=== PATIENT | female | born 1995 | race Caucasian/White ===

== ENCOUNTER 2021-09-03 08:36 | Outpatient (REF) | payer OTHER, SELFPAY ==
[2021-09-03 09:03] LABS: Binax Internal Control QC Valid; Binax Now Covid-19 Ag Negative (Negative)
== END 2021-09-03 08:37 | disposition home or self-care (01) ==
LOC: HO.HMGCLDS 08:36
PROVIDERS: Visit Provider Internal Medicine
DX: Z13.89 Encounter for screening for other disorder (principal)

== ENCOUNTER 2022-01-19 22:10 | Emergency (ER) | payer OTHER, SELFPAY ==
--- NOTE | ~2022-01-19 | CT_ITS ---
EXAMINATION: CT ABDOMEN AND PELVIS WITHOUT CONTRAST CLINICAL INFORMATION: Right upper quadrant pain COMPARISON: None TECHNIQUE: Multidetector volumetric imaging was performed from the superior aspect of the liver through the pubic symphysis. Sagittal and coronal reformatted images were obtained on the technologist's workstation. This CT examination was performed using dose optimization techniques as appropriate, variously including the following: *Automated exposure control *Adjustment of mA and/or kV according to patient size (this includes techniques or standardized protocols for targeted exams where dose is matched to indication/reason for exam; i.e. extremities or head) *Use of iterative reconstruction technique DLP: 547 mGy-cm FINDINGS: LUNG BASES: Unremarkable. ABDOMINAL AND PELVIC WALL: Unremarkable. LIVER AND BILIARY TREE: Unremarkable. GALLBLADDER: Unremarkable. PANCREAS: Unremarkable. SPLEEN: Unremarkable. ADRENAL GLANDS: Unremarkable. KIDNEYS AND URETERS: Unremarkable. GASTROINTESTINAL TRACT: Large and small bowel is unremarkable. Normal appendix. VASCULAR: Unremarkable. LYMPH NODES/PERITONEUM: No lymphadenopathy. FREE FLUID: None. BLADDER: Unremarkable. PELVIC VISCERA: Unremarkable. OSSEOUS STRUCTURES: Unremarkable. CT/CT abdomen pelvis wo con IMPRESSION: No findings to explain symptoms of right upper quadrant pain.
[2022-01-19 22:41] VITALS: BP 153/100; PULSE 114; RESP 20; TEMP 36.6; O2SAT 100; BMI 26.6
[2022-01-19 22:54] LABS: MANUAL DIFF FLAG NO
[2022-01-19 22:57] LABS: Basophils Absolute Auto 0.1 X10*3/uL (0.0-0.2); Basophils Percent Auto 0.9 % (0-2); Eosinophils Absolute Auto 0.7 X10*3/uL (0.0-0.4); Eosinophils Percent Auto 10.1 % (0-4); Hematocrit 42.9 % (37.0-47.0); Hemoglobin 14.4 g/dl (12.0-16.0); Imm Gran Abs Auto 0.01 X10*3/uL (0.00-0.03); Imm Gran Pct Auto 0.1 % (0.0-0.4); Lymphocytes Absolute Auto 2.3 X10*3/uL (1.2-4.9); Lymphocytes Percent Auto 33.2 % (20-40); Mean Corpuscular HGB Conc 33.6 g/dl (31.0-35.0); Mean Corpuscular Hemoglobin 30.7 pg (27.0-33.0); Mean Corpuscular Volume 91.5 fL (80.0-98.0); Mean Platelet Volume 12.2 fL (9.4-12.3); Monocytes Absolute Auto 0.5 X10*3/uL (0.1-1.2); Monocytes Percent Auto 6.8 % (2-11); Neutrophils Absolute Auto 3.4 x10*3/uL (2.0-8.3); Neutrophils Percent Auto 48.9 % (45-73); Platelet Count 169 X10*3/uL (160-400); Red Blood Count 4.69 X10*6/uL (4.20-5.50); Red Cell Distribution Width 13.1 % (11.0-16.0)
[2022-01-19 23:15] LABS: Alanine Aminotransferase 14 U/L (0-31); Albumin Level 4.2 g/dL (3.5-5.0); Alkaline Phosphatase 53 U/L (39-117); Anion Gap 12 (12-20); Aspartate Amino Transferase 17 U/L (5-31); Bilirubin Total 0.5 mg/dL (0.0-1.0); Blood Urea Nitrogen 16 mg/dL (9-16); Calcium 9.4 mg/dL (8.4-10.2); Carbon Dioxide 24 mmol/L (22-29); Chloride 105 mmol/L (96-108); Creatinine Clr Calc Pharmacy 90.6; Estimated Glomerular Filt Rate > 60; Glucose Random 89 mg/dL (60-115); Sodium 137 mmol/L (135-145)
--- NOTE | 2022-01-19 23:23 | ED_ITS ---
HPI - Abdominal Pain General Chief Complaint: Abdominal Pain Stated Complaint: right sided abd pain Time Seen by Provider: 01/19/22 23:22 Source: patient Mode of arrival: ambulatory Limitations: no limitations History of Present Illness HPI narrative: 26-year-old female with no past medical history presenting to the emergency room with right upper quadrant abdominal pain. Patient states that this stabbing 10/10 intermittent pain has been going on for 5 days. Pain occurs after a meal, eating makes it worse and pain lasts for what feels like 4 hours. Patient denies any past surgeries to her gallbladder and appendix. No trauma to the area. Her right upper quadrant is tender and painful to touch she says at times. At this time however, she denies any pain. Patient denies vomiting, diarrhea, nausea, fevers, chills, urinary changes, headache, vision changes, chest pain, shortness of breath. Patient is not on control. MD elicited complaint: abdominal pain Pertinent past history: none Onset (ago): day(s) (5) Pain Consistency: intermittent Location: RUQ Severity: severe Pain scale (0-10): 10 Quality: stabbing Radiation: none Exacerbating factors: nothing Relieving factors: nothing Associated symptoms: denies other symptoms Related Data Previous Rx's Medication Instructions Recorded azithromycin 250 mg tablet See Rx Instructions PO .COMPLEX #6 09/03/21 tabs Allergies Allergy/AdvReac Type Severity Reaction Status Date / Time No Known Allergies Allergy Verified 01/19/22 22:44 Review of Systems Review of Systems Constitutional : No Weight loss, No Fever, No Chills, No Fatigue, No Malaise ENT/Mouth : No sore throat, No Rhinorrhea Eyes: No Eye Pain, No Swelling, No Redness Cardiovascular : No Chest Pain, No SOB, No Dyspnea on Exertion, No Orthopnea, No Edema, No Palpitations Respiratory : No Cough, No Sputum, No Wheezing Gastrointestinal : No Nausea, No Vomiting, No Diarrhea, No Constipation, + abdominal Pain, No Hematochezia, No Melena Genitourinary : No Dysuria, No Urinary Frequency, No Hematuria, Musculoskeletal : No joint pain, No Myalgias, No Joint Swelling Skin : No Skin Lesions, No rash Neuro : No Weakness, No Numbness, No Dizziness, No Headache All other systems reviewed and are negative Yes all other systems are reviewed and are negative [facility] Past Medical History Attestation statement: The following information was validated with the patient. Source: old records reviewed and nursing notes reviewed Social History Social History Advance Directives: No Physical Exam ED Vital Signs: Vital Signs - 24 hr 01/19/22 22:41 01/20/22 00:44 Temperature 98 F Pulse Rate 114 H 80 Respiratory Rate 20 12 Blood Pressure 153/100 H 123/72 Pulse Oximetry 100 100 Oxygen Delivery Method Room Air Room Air BMI result Body Mass Index 26.6 Vital signs with a slightly elevated pressure likely secondary to pain. Appearance: Alert.? Oriented X3.? No acute distress.? Head: Normocephalic, atraumatic, no step-offs or deformities Eyes: Pupils equal, round and reactive to light.? ENT: Pharynx normal.? Neck: Normal inspection.? Neck supple.? CVS: Normal heart rate and rhythm.? Pulses normal.? Respiratory: No respiratory distress.? Breath sounds normal.? Abdomen: Soft and + tenderness right upper quadrant.? Skin: Skin warm and dry.? Normal skin color.? Normal skin turgor.? Extremities: No lower extremity edema.? No calf ttp. 5/5 strength to bilateral upper and lower extremities Back: No midline tenderness, no C-spine tenderness, full range of motion, no CV A tenderness bilaterally Neuro: Oriented X 3.? No motor deficit.? No sensory deficit. CN 2-12 intact Course Course Course Narrative: This patient was evaluated during a time of global shortage of iodinated contrast media. Based on guidance from the [employer], best practices, and local institutional approaches an alternative path for evaluating and managing the patient may have been employed in order to provide optimal care during this shortage. The current situation has been discussed with the patient. Reevaluation(s) Reevaluation #1: CBC with no acute findings. Chemistry with no electrolyte abnormalities requiring intervention. Transaminases normal. Calcium, total bilirubin normal. UA clean, urine negative. COVID negative. CT of the abdomen and pelvis pending, sign-out given to tiago Barragan pending improvement and imaging. Time: 01:09 MDM - Abdominal Pain MDM Narrative Medical decision making narrative: 322 26-year-old female no medical history presents with intermittent right upper quadrant pain associated with eating times 5 days. Physical examination with discomfort to the right upper quadrant. Lungs clear. Regular rate and rhythm. Abdomen soft, nondistended. Negative CVA. Neuro exam nonfocal Plan at this time is labs, CT scan to rule out obstructive uropathy, cholecystitis, appendicitis. No technical support associate on at this time therefore a CT scan will be done instead of an ultrasound as this does not seem to be in her an emergent reason to call an technical support associate in Medical Records Attestation: I reviewed the patient's medical records. Lab Data Attestation: I reviewed the patient's lab results. Result diagrams: 01/19/22 22:49 01/19/22 22:49 Labs: Lab Results 01/19/22 01/19/22 01/20/22 Range/Units 22:49 22:49 00:44 WBC 7.0 (4.8-10.8) X10*3/uL RBC 4.69 (4.20-5.50) X10*6/uL Hgb 14.4 (12.0-16.0) g/dl Hct 42.9 (37.0-47.0) % MCV 91.5 (80.0-98.0) fL MCH 30.7 (27.0-33.0) pg MCHC 33.6 (31.0-35.0) g/dl RDW 13.1 (11.0-16.0) % Plt Count 169 (160-400) X10*3/uL MPV 12.2 (9.4-12.3) fL Immature Gran % (Auto) 0.1 (0.0-0.4) % Neut % (Auto) 48.9 (45-73) % Lymph % (Auto) 33.2 (20-40) % [place] % (Auto) 6.8 (2-11) % Eos % (Auto) 10.1 H (0-4) % Baso % (Auto) 0.9 (0-2) % Lymph # (Auto) 2.3 (1.2-4.9) X10*3/uL [place] # (Auto) 0.5 (0.1-1.2) X10*3/uL Eos # (Auto) 0.7 H (0.0-0.4) X10*3/uL Baso # (Auto) 0.1 (0.0-0.2) X10*3/uL Abs Immat Gran (auto) 0.01 (0.00-0.03) X10*3/uL Absolute Neuts (auto) 3.4 (2.0-8.3) x10*3/uL Absolute Nucleated RBC 0.000 (0.0-0.012) X10*3/uL Nucleated RBC % (auto) 0.0 (0.0-0.2) /100WBC Sodium 137 (135-145) mmol/L Potassium 4.0 (3.3-5.1) mmol/L Chloride 105 (96-108) mmol/L Carbon Dioxide 24 (22-29) mmol/L Anion Gap 12 (12-20) BUN 16 (9-16) mg/dL Creatinine 0.99 (0.5-1.4) mg/dL Estim Creat Clear Calc 90.6 Estimated GFR > 60 Random Glucose 89 (60-115) mg/dL Calcium 9.4 (8.4-10.2) mg/dL Total Bilirubin 0.5 (0.0-1.0) mg/dL AST 17 (5-31) U/L ALT 14 (0-31) U/L Alkaline Phosphatase 53 (39-117) U/L Total Protein 7.0 (6.5-8.0) g/dL Albumin 4.2 (3.5-5.0) g/dL Urine Color YELLOW Urine Appearance HAZY Urine pH 6.0 (5.0-8.0) Ur Specific [place] 1.020 (1.005-1.025) Urine Protein NEG (NEG-TRACE) MG/DL Urine Glucose (UA) NEG (NEG) MG/DL Urine Ketones NEG (NEG) MG/DL Urine Blood NEG (NEG) Urine Nitrite NEG (NEG) Ur Leukocyte Esterase NEG (NEG) Urine Test (NEGATIVE) 01/20/22 Range/Units 00:44 WBC (4.8-10.8) X10*3/uL RBC (4.20-5.50) X10*6/uL Hgb (12.0-16.0) g/dl Hct (37.0-47.0) % MCV (80.0-98.0) fL MCH (27.0-33.0) pg MCHC (31.0-35.0) g/dl RDW (11.0-16.0) % Plt Count (160-400) X10*3/uL MPV (9.4-12.3) fL Immature Gran % (Auto) (0.0-0.4) % Neut % (Auto) (45-73) % Lymph % (Auto) (20-40) % [place] % (Auto) (2-11) % Eos % (Auto) (0-4) % Baso % (Auto) (0-2) % Lymph # (Auto) (1.2-4.9) X10*3/uL [place] # (Auto) (0.1-1.2) X10*3/uL Eos # (Auto) (0.0-0.4) X10*3/uL Baso # (Auto) (0.0-0.2) X10*3/uL Abs Immat Gran (auto) (0.00-0.03) X10*3/uL Absolute Neuts (auto) (2.0-8.3) x10*3/uL Absolute Nucleated RBC (0.0-0.012) X10*3/uL Nucleated RBC % (auto) (0.0-0.2) /100WBC Sodium (135-145) mmol/L Potassium (3.3-5.1) mmol/L Chloride (96-108) mmol/L Carbon Dioxide (22-29) mmol/L Anion Gap (12-20) BUN (9-16) mg/dL Creatinine (0.5-1.4) mg/dL Estim Creat Clear Calc Estimated GFR Random Glucose (60-115) mg/dL Calcium (8.4-10.2) mg/dL Total Bilirubin (0.0-1.0) mg/dL AST (5-31) U/L ALT (0-31) U/L Alkaline Phosphatase (39-117) U/L Total Protein (6.5-8.0) g/dL Albumin (3.5-5.0) g/dL Urine Color Urine Appearance Urine pH (5.0-8.0) Ur Specific [place] (1.005-1.025) Urine Protein (NEG-TRACE) MG/DL Urine Glucose (UA) (NEG) MG/DL Urine Ketones (NEG) MG/DL Urine Blood (NEG) Urine Nitrite (NEG) Ur Leukocyte Esterase (NEG) Urine Test NEGATIVE (NEGATIVE) Critical Care Time Critical Care Time Critical Care Time: No Discharge Plan Discharge Clinical Impression: Intermittent right upper quadrant abdominal pain Patient Disposition: Home, Self-Care Instructions: Acute Abdominal Pain (ED) Additional Instructions: Take your medications as prescribed. If you were prescribed antibiotics today, it is important that you take your medication to their entirety, do not skip any doses, do not finish them early. Follow-up with your primary care provider this week. Follow-up with gastroenterology if needed. Return to the emergency department with new or worsening symptoms. Such as fevers, chills, chest pain, shortness of breath, nausea, vomiting, dizziness, headache, vision changes, lethargy In case of emergency call 911 Please be advised that you were seen during a time of global shortage of iodinated contrast media. This means an alternative approach to your diagnosis and treatment may have been employed in order to provide optimal care during the shortage. If you have any worsening symptoms, please go to the nearest [facility] department or call 911 immediately Prescriptions: No Action azithromycin 250 mg tablet See Rx Instructions PO .COMPLEX Qty: 6 0RF Rx Instructions: take 500 mg today (day 1), then 250 mg for 4 days (days 2-5) PO Referrals: Fernanda Raymond MD [Physician] - 1 week Physician,None [Primary Care Provider] - 2 days
[2022-01-20 00:44] VITALS: BP 123/72; PULSE 80; RESP 12; O2SAT 100
[2022-01-20 00:52] LABS: Appearance Urine HAZY; Color Urine YELLOW; Glucose Urine UA NEG (NEG); Leukocyte Esterase Urine NEG (NEG); Nitrite Urine NEG (NEG); Urine Blood NEG (NEG); Urine Ketones NEG (NEG); Urine Protein NEG (NEG-TRACE)
[2022-01-20 00:54] LABS: UPreg QC Valid YES; Urine Pregnancy NEGATIVE (NEGATIVE)
--- NOTE | 2022-01-20 02:45 | PC.NURSE ---
Discharged at this time. The pt verbalized an understanding of all DC orders and and she ambulated out of the ED independently and with steady gait.
== END 2022-01-20 02:46 | disposition home or self-care (01) ==
PROVIDERS: Internal Medicine; Emergency Provider Emergency Medicine
DX: R10.11 Right upper quadrant pain (principal)
CPT/HCPCS: 36415; 74176; 80053; 81003; 81025; 85025; 99283; 99284

== ENCOUNTER 2022-02-05 10:22 | Outpatient (REF) | payer OTHER, SELFPAY ==
[2022-02-05 12:11] LABS: Lipase 22 U/L (8-78)
[2022-02-05 12:14] LABS: Folate 13.9 ng/mL (> or = 4.0); Vitamin B12 319 pg/mL (200-900)
[2022-02-07 13:23] LABS: Transglutaminase Ab IgG <1.0 U/mL; Transglutaminase IgA <1.0 U/mL
[2022-02-07 14:42] LABS: Immunoglobulin A 163 mg/dL (47-310)
[2022-02-09 14:06] LABS: Vitamin D 25-OH, D2 <4 ng/mL; Vitamin D 25-OH, D3 37 ng/mL; Vitamin D 25-OH, Total 37 ng/mL (30-100)
== END 2022-02-05 10:23 | disposition home or self-care (01) ==
LOC: HO.LAB 10:22
PROVIDERS: PCP Internal Medicine; Visit Provider Nurse Practitioner Family
DX: R10.9 Unspecified abdominal pain (principal); R19.7 Diarrhea, unspecified; E55.9 Vitamin D deficiency, unspecified
CPT/HCPCS: 36415; 82306; 82607; 82746; 82784; 83690; 84443; 86364

== ENCOUNTER 2022-03-17 09:02 | Outpatient (REF) | payer OTHER, SELFPAY ==
--- NOTE | ~2022-03-17 | US_ITS ---
EXAMINATION: US ABDOMEN COMPLETE CLINICAL INFORMATION: Unspecified abdominal pain. COMPARISON: CT abdomen and pelvis without contrast dated 01/20/2022. TECHNIQUE: Real-time imaging of the abdominal viscera. FINDINGS: PANCREAS: Normal. ABDOMINAL AORTA: The proximal, mid, and distal segments are normal in caliber. INFERIOR VENA CAVA: Visualized portions are normal. LIVER: Normal. The liver is normal in size. The liver contour is normal. Parenchymal echogenicity is normal. No focal hepatic lesion. There is no intrahepatic biliary duct dilatation seen. GALLBLADDER: Normal. The gallbladder is physiologically distended without evidence of stones, sludge, polyps, wall thickening or pericholecystic fluid. COMMON BILE DUCT: Normal in caliber measuring 0.24 cm in diameter. RIGHT KIDNEY: Normal. No hydronephrosis. No renal calculi or focal parenchymal lesions. The kidney measures 11.3 cm in maximum dimension. LEFT KIDNEY: Normal. No hydronephrosis. No renal calculi or focal parenchymal lesions. The kidney measures 11.4 cm in maximum dimension. SPLEEN: Normal. The spleen measures 9.9 cm in maximum dimension. FREE FLUID: None. US/US abdomen complete IMPRESSION: Unremarkable exam.
== END 2022-03-17 09:03 | disposition home or self-care (01) ==
LOC: HO.HMGCX 09:02
PROVIDERS: PCP Internal Medicine; Visit Provider Nurse Practitioner Family
DX: R10.9 Unspecified abdominal pain (principal)
CPT/HCPCS: 76700

== ENCOUNTER 2024-04-21 13:53 | Outpatient (REF) | payer OTHER, SELFPAY ==
[2024-04-22 03:08] LABS: CT PCR NOT DETECTED (Not Detect.); NG PCR NOT DETECTED (Not Detect.)
[2024-04-22 04:02] LABS: Syphilis Screen Nonreactive (Nonreactive)
[2024-04-22 04:24] LABS: HBc Num1 0.12 S/CO (0.00-0.79); HIV AB/AG Nonreactive (Nonreactive); HIV Num 1 0.06 S/CO (0.00-0.99); Hepatitis B Core Antibody Nonreactive (Nonreactive); ~HepC Num1 0.15 S/CO (0.00-0.79); ~Hepatitis C Antibody Nonreactive (Nonreactive)
== END 2024-04-21 13:54 | disposition home or self-care (01) ==
LOC: HO.LAB 13:53
PROVIDERS: PCP Internal Medicine; Visit Provider Advanced Practice Midwife
DX: Z01.419 Encounter for gynecological examination (general) (routine) without abnormal findings (principal); Z20.2 Contact with and (suspected) exposure to infections with a predominantly sexual mode of transmission
CPT/HCPCS: 36415; 86704; 86780; 86803; 87389; 87491; 87591; 87625; 88175

== ENCOUNTER 2024-04-21 13:53 | Outpatient (AMB) | payer OTHER, SELFPAY ==
[2024-04-21 14:01] VITALS: BP 120/86; BMI 27.6
--- NOTE | 2024-04-21 14:01 | A.OFFVIS_ITS ---
Vital Signs 04/21/24 14:01 Height 5 ft 6 in Weight 171 lb BMI 27.6 BP 120/86 Intake Visit Reasons: [employer]ER annual exam/referral Intake Note: Last pap 2019 hx abn cells and colpo 1 normal since First Crusher: First Crusher Present (Carine) Allergies No Known Allergies Allergy (Verified 04/21/24 14:01) Is last menstrual period known: Yes Last menstrual period: 04/03/24 HPI Comments Details: She is a premenopausal woman presenting for new patient annual examination. Doing well with no concerns. She tries to eat healthy and stays active with exercise. Regular monthly menses. Currently is sexually active, uses withdrawal not did not control, if it accidental would be accepting. She denies vaginal itching and irritation. STI screening offered; she accepts. Denies family history of breast, ovarian or colon cancer. History of BATUR-renk-thsbk, colpo-SHERRI 1 2018, last Pap results unavailable at visit. [facility] Surgical History No pertinent past surgical history Family History Maternal Grandmother Heart attack Mother No problems noted. Father No problems noted. 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 Current occupational exposures/hazards: No Sexual orientation: Straight/Heterosexual Gender identity: Female Cognitive needs: No Hearing needs: No Vision needs: No Female Reproductive History Menstrual Duration of menses: 3-5 days Date of last menstrual period: 04/03/24 control method: none Total pregnancies: 0 Date of last pap smear: 10/13/18 (asc-h +hpv) History of abnormal pap smear: Yes (05/28 colpo sherri 1) Review of Systems Const All systems reviewed & are unremarkable except as noted in HPI and below Reports as per HPI Eyes Reports no additional complaints ENT Reports no additional complaints Card Reports no additional complaints Resp Reports no additional complaints GI Reports as per HPI and Reports no additional complaints Reports as per HPI Musc Reports no additional complaints Skin/Breast Reports as per HPI Neuro Reports no additional complaints Psych Reports no additional complaints Endo Reports no additional complaints Ric/Lymph Reports no additional complaints Aller/Immun Reports no additional complaints Physical Exam Vital Signs: Last Vital Signs BP 120/86 04/21/24 14:01 BMI result Body Mass Index 27.6 Const General: cooperative, healthy appearing, no acute distress, well developed and alert Orientation/consciousness: patient oriented x3 HEENT Head: Yes normal to inspection Eyes General: appearance normal, both eyes and all related structures Neck Neck: Yes normal visual inspection Thyroid: Thyroid normal Chest Chest palpation & inspection: normal inspection of the chest and other (no puckering, dimpling, peau de orange, retraction, discharge, masses) Breast/axilla inspection: normal inspection of the breasts Breast/axilla palpation: normal palpation of the breasts Resp Effort & Inspection: normal respiratory effort GI Inspection: Yes normal to inspection Palpation (GI): Soft to palpation Rectal Exam - Female: deferred General: Yes bladder normal to palpation External Female Exam: normal external appearance and normal appearance of the urethra Speculum Exam - Vagina: normal appearance of the vagina, normal palpation and normal vaginal discharge Speculum Exam - Cervix: normal appearance of the cervix, normal palpation and Other cervical findings present (Bled slightly with Pap) Bimanual exam- vagina & uterus: normal bimanual exam, normal palpation, uterine size normal, bladder normal to palpation, normal palpation and non-tender Bimanual Exam- Adnexa, other: no masses Skin General skin exam: no rashes or lesions noted Rashes: no rashes Neuro General: patient oriented x3 Cognition (Neuro): normal cognition Extrem General: Yes normal to inspection Psych Attitude: cooperative Thought process: Normal thought process present Assessment & Plan Assessment & Plan (1) Encounter for well woman exam with routine gynecological exam: Code(s): Z01.419 - Encounter for gynecological examination (general) (routine) without abnormal findings Category: Medical (2) History of abnormal cervical Pap smear: Code(s): Z87.42 - Personal history of other diseases of the female genital tract Plan Discussed: Current recommendations for pap smears per ASCCP guidelines. Pap smear obtained today. GC and chlamydia obtained. Plans STI screening blood work at the lab, additionally ordered. Breast awareness and periodic breast exams. Maintain a healthy lifestyle including a well balanced diet and routine exercise. control, declined. Advised to consider initiating a vitamin or multivitamin with folic acid for the prevention of neural tube defects. Efficacy of withdrawal is about 22% failure rate. Release for Pap records from [facility] [place]. Patient verbalizes understanding and agrees to the plan of care. She was given opportunity to ask questions and all questions were answered to the best of my ability. RTO in one year for annual health insurance agent examination. This note is constructed using voice recognition software. While every effort has been made to ensure accuracy, childcare director errors may have been included. Orders: Orders HIV Ab/Ag Today Z20.2 - Contact with and (suspected) exposure to infections with a predominantly sexual mode of transmission Syphilis Screen Today Z20.2 - Contact with and (suspected) exposure to infections with a predominantly sexual mode of transmission Hepatitis C Antibody Reflex Today Z20.2 - Contact with and (suspected) exposure to infections with a predominantly sexual mode of transmission Hepatitis B Core Antibody Today Z20.2 - Contact with and (suspected) exposure to infections with a predominantly sexual mode of transmission Coding Level of Care Code New Pt Prev Care 18-39yr([id number] Diagnoses Encounter for well woman exam with routine gynecological exam Z01.419 History of abnormal cervical Pap smear Z87.42
== END 2024-04-21 14:42 | disposition home or self-care (01) ==
PROVIDERS: PCP Internal Medicine; Visit Provider Advanced Practice Midwife
DX: Z01.419 Encounter for gynecological examination (general) (routine) without abnormal findings (principal); Z87.42 Personal history of other diseases of the female genital tract
CPT/HCPCS: 99385

== ENCOUNTER 2024-04-21 15:00 | Outpatient (REF) | payer OTHER, SELFPAY | END 2024-04-21 15:01 | disposition home or self-care (01) | LOC: HO.LNP 15:00 | PROVIDERS: Visit Provider Advanced Practice Midwife | DX: Z13.89 Encounter for screening for other disorder (principal) ==

== ENCOUNTER 2024-08-30 17:26 | Outpatient (AMB) | payer OTHER, SELFPAY ==
[2024-08-30 17:29] VITALS: BP 130/78; BMI 28.4
--- NOTE | 2024-08-30 17:29 | MHC.PC.OV ---
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 Automatic Required: No Accompanied by: Self / Same As Patient Allergies No Known Allergies Allergy (Verified 08/30/24 17:37) Medication List - Last Reconciled 08/30/24 by Tess Christianson MD No Known Home Meds Tobacco use date assessed: 08/30/24 Dental Screening Dental Screen Date: 08/30/24 Did you have a dental visit in the last 12 months?: Yes Did you have a dental problem in the last 6 months where you did not have access to dental care?: No Was dental information given to patient?: Patient has dentist HPI HPI Comments History of Present Illness Details The patient is a 28-year-old female presenting with a request for a routine physical examination and to update her vaccinations. She does not report any chronic health issues and denies any use of medications or known medical allergies. She has a history of a Pap smear from 2019 after an abnormal finding at that time, but reports a recent follow-up Pap smear in late 2023, with an upcoming appointment in 2024. There is no mention of significant past surgeries or medical events. She is not currently experiencing any symptoms of depression or anxiety. - Tdap vaccine overdue; discussed administration today. - Flu vaccine discussed as not received for the current influenza season; patient expressed interest in receiving it. - Pap smear in 2023 after prior abnormal finding in 2018. - No recent history of cigarette smoking and only occasional alcohol consumption noted. [facility] Surgical History No pertinent past surgical history Family History Maternal Grandmother Heart attack Mother No problems noted. Father No problems noted. 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 1. Little interest or pleasure in doing things: not at all 2. Feeling down, depressed, or hopeless: not at all 3. Trouble falling or staying asleep, or sleeping too much: not at all 4. Feeling tired or having little energy: not at all 5. Poor appetite or overeating: not at all 6. Feeling bad about yourself - or that you are a failure or have let yourself or your family down: not at all 7. Trouble concentrating on things, such as reading the newspaper or watching television: not at all 8. Moving or speaking so slowly that other people could have noticed. Or the opposite - being so fidgety or restless that you have been moving around a lot more than usual: not at all 9. Thoughts that you would be better off or of hurting yourself in some way: not at all Total score: 0 Depression Screening Interpretation: Negative Depression Screening Done: Yes 69692 - PHQ-9 Billing: Yes Source: Developed by Drs. Tank Phoenix, Loren Webster, Freddy Kearns and colleagues, with an educational maddison from [employer]. Thrive Questionnaire Date Thrive assessed: 08/30/24 I am a: Patient What is your living situation today?: I have a steady place to live Within the past 12 months, did the food you bought not last and you didn't have the money to get more?: Never true Within the past 12 months, did you worry whether your food would run out before you got money to buy more?: Never true Do you have trouble paying for medicines?: No Do you have trouble getting transportation to medical appointments?: No Do you have trouble paying your heating and electricity bill?: No Do you have trouble taking care of your child, family member or friend?: No Do you have trouble with day-to-day activities such as bathing, preparing meals, shopping, managing finances, etc.?: No Are you currently unemployed and looking for a job?: No Are you interested in more education?: No Please select the resources that you would like help with: None Currently or been in a relationship where the following occur: No concerns reported THRIVE Score: 0 AUDIT C Alcohol Use Questionnaire (AUDIT-C) 1. How often do you have a drink containing alcohol?: 2-4 times a month 2. How many drinks containing alcohol do you have on a typical day when you are drinking?: 1 or 2 3. How often do you have six or more drinks on one occasion?: Never Total Score: 2 VALENTINE-7 AMB Questionnaire VALENTINE-7 Date VALENTINE - 7 assessed: 08/30/24 Feeling nervous, anxious, or on edge: 0 = Not at all Not being able to stop or control worryin = Not at all Worrying too much about different things: 0 = Not at all Trouble relaxin = Not at all Being so restless that it is hard to sit still: 0 = Not at all Becoming easily annoyed or irritable: 1 = Several days Feeling afraid as if something awful might happen: 0 = Not at all Total VALENTINE-7 score (0-4 normal; 5-9 mild; 10-14 moderate; 15-21 severe): 1 Source: Developed by Drs. Tank Phoenix, Loren Webster, Freddy Kearns and colleagues, with an educational maddison from [employer]. VALENTINE-7 Assessment Billing VALENTINE-7 Assessment Tool: VALENTINE-7 Assessment 18043 Review of Systems Const All systems reviewed & are unremarkable except as noted in HPI and below Card Denies chest pain at rest, Denies chest pain with activity, Denies edema, Denies irregular heart rhythm, Denies claudication, Denies dyspnea, Denies dyspnea on exertion, Denies orthopnea, Denies paroxysmal nocturnal dyspnea and Denies slow heart rate Resp Denies cough, Denies dyspnea and Denies dyspnea on exertion GI Denies abdominal pain, Denies change in bowel habits, Denies excessive flatus, Denies nausea and Denies vomiting Denies urinary incontinence, Denies urinary hesitancy and Denies urinary urgency Musc Denies abnormal gait, Denies atrophy, Denies deformity and Denies limited range of motion Skin/Breast Denies bleeding lesions, Denies changing lesions and Denies rash Neuro Denies abnormal gait, Denies behavioral changes and Denies lack of coordination Psych Denies behavioral changes Physical exam (Primary Care) Vital Signs: Last Vital Signs BP 130/78 08/30/24 17:29 BMI result Body Mass Index 28.4 Tobacco/Smoking Status: Tobacco use Status Tobacco use date assessed 08/30/24 08/30/24 17:33 Patient Tobacco Use Status Never used Tobacco 08/30/24 17:33 e-Cigarette/Vaping Use Never Used 08/30/24 17:33 PHQ-9: PHQ-9 Score PHQ-9: Total score 0 08/30/24 17:51 Depression Screening Interpretation: Negative Thrive Assessment: Date of Thrive Assessment Date Thrive assessed 08/30/24 08/30/24 17:33 Currently or been in a relationship where the following occur: No concerns reported HENMT Head: Yes normal to inspection, Yes normocephalic and Yes atraumatic Ears: external ears normal Eyes General: appearance normal, both eyes and all related structures Eyelids: Yes eyelids normal Conjunctivae: conjunctivae normal Neck Neck: Yes normal visual inspection and Yes supple Resp Effort & Inspection: normal respiratory effort Auscultation: clear to auscultation bilaterally Cardio Jugular venous distension: no JVD Rate: regular rate Rhythm: regular rhythm Heart sounds: S1 normal heart sound present and S2 normal heart sound present GI Inspection: Yes normal to inspection Palpation (GI): Soft to palpation and nontender Auscultation: normal bowel sounds Skin General skin exam: no rashes or lesions noted Neuro General: no focal motor deficits Extrem General: Yes full ROM Psych Appearance: grossly normal Office Procedures Flu Questionnaire Does the patient have a severe egg allergy?: No Does the patient have severe life threatening allergies?: No Does the patient have a fever or illness today?: No Has the patient ever had Guillain-Franklin Syndrome?: No Has the patient ever had any past reaction to a flu shot?: No Immunizations Fluarix Triv 4191-4032 (PF) 45 mcg (15 mcg x 3)/0.5 mL IM syringe Performing Provider: Tess Christianson MD [place] [facility] [place] [facility] Administered by: CAMILO Ayala on 08/30/24 17:53 Dose Route Admin Location Dispensed Lot Number Expiration Date [facility] Research Scholar 0.5 mL IM Right Deltoid 0.5 mL [id number] 02/06/25 69777-740-34 GLAXOSMITHKLINE VIS Given Date VIS Provided VIS Publication Date 08/30/24 Single Vaccine 21 Eligibility Eligibility Date Funding Source Not [facility] Eligible 08/30/24 Private Boostrix Tdap 2.5 Lf unit-8 mcg-5 Lf/0.5 mL intramuscular syringe Performing Provider: Tess Christianson MD Performing Location[place] [facility] [place] [facility] Administered by: CAMILO Ayala on 08/30/24 17:53 Dose Route Admin Location Dispensed Lot Number Expiration Date [employer] Research Scholar 0.5 mL IM Left Deltoid 0.5 mL [id number] 10/26/26 18403-333-82 GLAXOSMITHKLINE VIS Given Date VIS Provided VIS Publication Date 08/30/24 Single Vaccine 21 Eligibility Eligibility Date Funding Source Not [facility] Eligible 08/30/24 Private Coding Level of Care Code Est Pt Prev Care 18-39y(05963) Diagnoses Physical exam Z00.00 Additional Codes VALENTINE-7 Assessment Billing - VALENTINE-7 Assessment Tool: VALENTINE-7 Assessment 69946 ([id number]) PHQ-9 - 50135 - PHQ-9 Billing: Yes ([id number]) Time Spent (min) 30 Assessment & Plan Assessment & Plan (1) Physical exam: Code(s): Z00.00 - Encounter for general adult medical examination without abnormal findings Category: Medical Plan - Continue to encourage healthy lifestyle choices and routine vaccination updates.: Patient was informed and verbally consented to the use of an ambient scribe for clinic note documentation during this visit. During today's visit, we discussed the importance of updating vaccinations, specifically the Tdap and influenza vaccines, which the patient opted to receive today. We reviewed her Pap smear history and clarified the need for routine follow-up based on current guidelines. Alcohol consumption was discussed and is within moderate levels. We agreed on maintaining a healthy lifestyle and to revisit any new health changes during future routine check-ups. Orders: Orders TDaP Immunization Today Z23 - Encounter for immunization Influenza [id number] Immunization Today Z23 - Encounter for immunization Patient Instructions: - Receive the Tdap and influenza vaccines as discussed. - Maintain a healthy lifestyle, including moderation in alcohol consumption. - Attend the scheduled follow-up appointment in April 2025 for continued monitoring. - Report any new symptoms or health concerns as they arise.
== END 2024-08-30 17:56 | disposition home or self-care (01) ==
PROVIDERS: PCP Internal Medicine; Visit Provider Internal Medicine
DX: Z23 Encounter for immunization (principal); Z00.00 Encounter for general adult medical examination without abnormal findings

== ENCOUNTER → 2024-08-30 17:26 | Outpatient (BNVA) | payer OTHER, SELFPAY | PROVIDERS: PCP Internal Medicine; Visit Provider Internal Medicine | DX: Z00.00 Encounter for general adult medical examination without abnormal findings (principal); Z23 Encounter for immunization | CPT/HCPCS: 90471; 90472; 90656; 90715; 96127 ==

== ENCOUNTER 2025-07-29 09:07 | Outpatient (AMB) | payer OTHER, SELFPAY ==
--- NOTE | 2025-07-29 09:35 | AM.OFFWIN_ITS ---
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 Acute pharyngitis: - The patient reports a sore throat that began 2 days ago. - Prior to the sore throat, she experien mandi nausea, myalgia, and poor sleep at the beginning of the week. - Her symptoms then progressed to includ e nasal congestion, followed by the sore throat, which is now her primary complaint. - She reports pain with swallowing. - She tried taking Advil, which provided initial relief, but is no longer effective. - She has a close contact, her veneciaanceshan has a sinus infection and is on antibiotics. - A rapid strep test performed in the of replaced by [facility] was negative. - She reports no known allergies and is not on any routine medications. Past Medical History - No known allergies. Review of Systems - Constitutional: Denies fever, reports myalgia and poor sleep. - HEENT: Reports sore throat and nasal c ongestion. - Gastrointestinal: Reports nausea. Physical Exam General: Well developed, well nourished, in no acute distress. Appears stated age. Head: Normocephalic, atraumatic. Eyes: Pupils are equal, round and reactive to light and accommodation. Conjunctivae are clear. Vision grossly normal. Ears: TM intact, mild injection billat Nose: Turbinates pink and edematous, no sinus TTP Pharynx: Uvula midline, no exudate, + erythema; negative strep test; no ac adenopathy; voice mildly wraspy Lungs: Clear to auscultation bilaterally. No rales, rhonchi or wheeze noted. Good air flow in all rucker. Heart: Regular rate and rhythm. No murmurs, click, rubs or gallops are noted. Psych: Mood and affect appropriate. Results - Labs: Rapid strep test was negative. Medical Decision Making The patient is a 29-year-old female with a 2-day history of sore throat, preceded by symptoms of nausea, myalgia, and nasal congestion. The in-office rapid strep test was negative. Physical examination revealed pharyngeal erythema and irritation consistent with a sore throat, but no exudates or other findings suggestive of streptococcal pharyngitis. Given the clinical presentation, duration of symptoms, and the negative rapid strep test, the diagnosis is most consistent with viral pharyngitis. The patient was advised that numerous viruses are circulating, all of which can cause a severe sore throat. The plan is supportive care, including dbci-vtf-yvdnzey analgesics, and I will prescribe prescription-strength ibuprofen for better pain control. The patient was instructed to return if her symptoms do not resolve within a total of 14 days, at which time a bacterial etiology would be considered. Plan 1. Acute Pharyngitis - The patient's symptoms are consistent with viral pharyngitis, given the negative rapid strep test and exam findings showing only erythema. - Recommended supportive care, including Tylenol, Motrin, and Cepacol spray for symptomatic relief. - A prescription for ibuprofen 800 mg wa s sent to her preferred pharmacy, [facility] on [address] in [place], to be taken up to three times a day with food for pain relief. - Advised to maintain hydration with ple nty of fluids. - Instructed to seek follow-up if sympto ms do not improve after a total of 14 days, as a bacterial cause would then be considered. Patient Instructions - Your sore throat is most likely caused by a virus, as your strep test was negative. - For pain, you can use [id number]-mbf-[id number] options like Tylenol, Motrin, or a numbing throat spray like Cepacol. - I have sent a prescription for Ibuprof en 800 mg to the [facility] on [address] in [place]. You can take one tablet up to three times per day, but be sure to take it with food in your stomach. - Make sure to drink plenty of fluids to stay hydrated. - If you are not feeling better after 14 days from when your symptoms started, please return for re-evaluation. Consent The patient consented to the physical examination. Patient was informed and verbally consented to the use of an ambient scribe for clinic note documentation during this visit. [facility] Surgical History No pertinent past surgical history Family History Maternal Grandmother Heart attack Mother No problems noted. Father No problems noted. 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 Current occupational exposures/hazards: No Sexual orientation: Straight/Heterosexual Gender identity: Female Cognitive needs: No Hearing needs: No Vision needs: No Physical Exam Vital Signs: Last Vital Signs Temp 98.7 F 07/29/25 09:40 Pulse 81 07/29/25 09:40 Resp 16 07/29/25 09:40 BP 102/72 07/29/25 09:40 Pulse Ox 100 07/29/25 09:40 Oxygen Delivery Method Room Air 07/29/25 09:40 BMI result Body Mass Index 29.9 Results AMB Rapid Strep AMB Rapid Strep Negative Last Edit by Michelle Cabrera CMA on 07/29/25 09:53 Results Reviewed Results Reviewed: Laboratory Last Values Strep Scn Rapid Clinic Negative 07/29/25 09:42 Assessment & Plan Assessment & Plan (1) Viral pharyngitis: Code(s): J02.9 - Acute pharyngitis, unspecified Plan . Orders: Orders AMB Rapid Strep Screen Today Z13.9 - Encounter for screening, unspecified Medications: New ibuprofen 800 mg PO Q8H PRN 30 tabs 0RF pain Patient Instructions: Why aren't I getting antibiotics? I am so sick. I need them. I am empathetic that you're not feeling well & want you to recover quickly. The reason I have not prescribed antibiotics today is because I am an Antibiotic [employer]. What does that mean? It means that I am aiding in reducing Antimicrobial resistance (AMR). Antimicrobial resistance (AMR) is one of the top global public health and development threats. It is estimated that bacterial AMR was directly responsible for 1.27 million global deaths in 2019 and contributed to 4.95 million deaths. The misuse and overuse of antimicrobials in humans, animals and plants are the main drivers in the development of drug-resistant pathogens. Taking an antibiotic increases a patient?s chance of becoming colonized or infected with a resistant organism, and taking an antibiotic when not needed can lead to the development of antibiotic resistance. So the why... is because I care! Coding Level of Care Code Est Pt Level 3 (43485) Diagnoses Viral pharyngitis J02.9
[2025-07-29 09:40] VITALS: BP 102/72; PULSE 81; RESP 16; TEMP 37.1; O2SAT 100; BMI 29.9
== END 2025-07-29 10:19 | disposition home or self-care (01) ==
PROVIDERS: PCP Internal Medicine; Visit Provider Nurse Practitioner Family
DX: Z13.9 Encounter for screening, unspecified (principal); J02.9 Acute pharyngitis, unspecified

== ENCOUNTER → 2025-07-29 09:07 | Outpatient (BNVA) | payer OTHER, SELFPAY | PROVIDERS: PCP Internal Medicine; Visit Provider Nurse Practitioner Family | DX: J02.9 Acute pharyngitis, unspecified (principal) | CPT/HCPCS: 87880 ==